=== PATIENT | male | born 1970 ===

== ENCOUNTER 2021-07-17 05:09 | Day surgery (SDC) | payer OTHER ==
[~2021-07-17 05:09] MED LIST: CLONAZEPAM1 MG PO
[2021-07-17] MEDS ORDERED: ULTRACET PO (11:30)
[2021-07-17] MEDS ORDERED: MACROBID 100 M100 MG PO (11:30)
== END 2021-07-17 14:35 | disposition home or self-care (01) ==
LOC: CIR.AMB 05:09
PROVIDERS: ATTEND Obstetrics & Gynecology Gynecology
DX: K62.3 Rectal prolapse (principal); K45.8 Other specified abdominal hernia without obstruction or gangrene